=== PATIENT | male | born 1980 | race Caucasian/White ===

== ENCOUNTER 2018-05-10 19:24 | Emergency (ER) | payer SELFPAY ==
[2018-05-10 19:24] VITALS: BP 186/81; PULSE 99; RESP 20; TEMP 36.6; O2SAT 95; BMI 38.2
--- NOTE | 2018-05-10 19:40 | RAD_ITS ---
STUDY: X-RAY - PELVIS AND LEFT HIP REASON FOR EXAM: Male, 37 years old. Problems with hip for 2 years. Crackling nor is the left hip when bending over. TECHNIQUE: Radiological exam, hip, unilateral, with pelvis when performed; 2 or 3 views. COMPARISON: None. FINDINGS: There is a non-specific bowel gas pattern. Normal visualized soft tissue structures. Normal bilateral iliac wings, sacroiliac joints and visualized sacrum. Normal bilateral superior and inferior pubic rami. Normal pubic symphysis. Normal bilateral ischial tuberosities. Normal visualized left femoral head. Normal left acetabulum. Normal hip joint. RAD/Hip 2-3 Views with Pelvis IMPRESSION: Normal x-ray examination of the pelvis and hip. Electronically Signed: Saurabh Sullivan DO at 20:21 EDT Tel [phone], Service support ,
--- NOTE | 2018-05-10 19:43 | ED.DCSUM_ITS ---
- ER Visit Summary Date of Service: 05/10/18 Chief Complaint: Left hip pain History of Present Illness: The patient is a 37 M sudden increasing left hip pain after bending over. States he heard a crack. Has been dealing with this hip pain for 2 years. He is from [place]. He is here visiting his parents for 2 weeks. Patient states he sees an orthopedist along with a neurosurgeon with both spinal and hip injections. Last injection with September of last year. Currently on amitriptyline, gabapentin, oxycodone's. He states he takes 10 mg oxycodone every 8 hours. He ran out of his Motrin. No history of gastric ulcers or acute kidney injury. He drove himself here. Pain is worse with movement. No fevers. No rash. He has had similar flares in the past. Physical Examination: General: Alert and oriented ?3, moderate e distress HEENT: Normocephalic, atraumatic. Moist mucosa membranes Neck: supple, nontender. Cardiovascular: Regular rate and rhythm, no murmurs Respiratory: Normal breath sounds, symmetric, no distress Abdomen: Soft, nontender, nondistended Extremities: Left lower extremity: Hip region with no erythema or rash. There is pain in the groin. No shortening or rotation. No edema, pulses intact ?4 Neuro: no focal neurological deficits. Test Results: Left hip x-ray: No fracture dislocation Emergency Department Course and Treatment: Patient acute flare of his chronic hip pain symptoms. He states he felt a crack when bending over. He was treated with IM Toradol along with subcu morphine. X-rays obtained which negative for any fracture dislocation. Reevaluation symptoms much more improved. He has oxycodone at home to use, I will refill his ibuprofen. He will continue his home medications. There is no rash or fevers for concerns of septic hip joint. He will follow-up with his specialist for outpatient reevaluation. Treatment Plan: [] Disposition: Discharge Impression: Acute on chronic left hip pain This note was generated with [employer] dictation software. It may contain incorrect words, spelling, and punctuation that were not noted in review of the chart prior to signing ED Disposition - Plan for ED Patient: Disposition: Home or Assisted Living Chief Complaint: Lower Extremity Injury Diagnosis: Acute on chronic left hip pain Prescriptions: Ibuprofen 600 mg PO 4X/DAY #30 tablet Referrals: NOT,DEFINED [NON-STAFF] - Additional Instructions: Acute flare of your ongoing hip pain. Continue your home doses of medications. Continue ibuprofen as written. Follow-up with your specialists for reevaluation.
[2018-05-10] MEDS: Ketorolac 60 MG/2 ML Vial IM (19:49)
[2018-05-10] MEDS: morphine 10 MG/ML Syringe SC (19:50)
[2018-05-10 20:58] VITALS: RESP 18
--- NOTE | 2018-05-10 21:10 | NURSING ---
WHEELED THE PT TO HIS FRIENDS CAR, NO OTHER QUESTIONS, KNOWS TO FOLLOW UP WITH HIS SPECIALIST
== END 2018-05-10 21:10 | disposition home or self-care (01) ==
PROVIDERS: Emergency Provider Emergency Medicine; Family Provider Family Medicine
DX: M25.552 Pain in left hip (principal); G89.29 Other chronic pain; I10 Essential (primary) hypertension; Z79.899 Other long term (current) drug therapy
CPT/HCPCS: 73502; 96372; 99282

== ENCOUNTER 2020-01-17 17:30 | Outpatient (RCR) | payer OTHER, SELFPAY ==
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
--- NOTE | 2020-06-09 16:53 | HP.PT.NRP ---
ANIKET FLORES was seen in my office for initial evaluation on 12/24/19. The following Plan of Care was established for this patient: Initial Frequency: 2-3x /Week Initial Duration: 4-6 Weeks Patient/Client Instruction: Educate patient on: Condition, Plan of Care For the Purpose of:: To improve self management Therapeutic Exercise to Include: Strength training, Body mechanics, Postural training, Flexibilty training, Gait and locomotor training, Dynamic Lumbar Stabilization For the Purpose of:: To decrease pain, To increase ROM, To improve muscle performance and motor function IF ES: Yes For the Purpose of:: To decrease pain This patient was last seen in our office . Pertinent comments regarding their Physical therapy will appear below: Pt was treated for 4 PT visits for LBP through the date of 01/17/2020. Pt has not returned through todays date and is discontinued at this time. At this point I will be discontinuing this patient from physical therapy. I would be happy to see this patient again in the future if found appropriate by the physician. Thank you! Kaleb Joe, PT, ATC
== END 2020-01-17 19:00 | disposition home or self-care (01) ==
LOC: PT 17:30
PROVIDERS: PCP Family Medicine; Referring Provider Family Medicine; Visit Provider Family Medicine
DX: M54.5 Low back pain (principal); G89.29 Other chronic pain
CPT/HCPCS: 97014; 97110; 97161; G0283

== ENCOUNTER → 2020-06-19 | Outpatient (CLI) | payer SELFPAY | END | disposition home or self-care (01) | LOC: LABSPEC 16:37 | PROVIDERS: PCP Family Medicine; Referring Provider Family Medicine; Visit Provider Family Medicine | DX: Z20.828 Contact with and (suspected) exposure to other viral communicable diseases (principal) | CPT/HCPCS: 87635; U0003 ==

== ENCOUNTER → 2021-06-09 08:55 | Outpatient (CLI) | payer SELFPAY ==
[2021-06-09 10:09] LABS: Erythrocyte Sedimentation Rate 34 mm/hr (0-20)
== END ==
PROVIDERS: PCP Family Medicine; Referring Provider Family Medicine; Visit Provider Family Medicine
DX: M25.50 Pain in unspecified joint (principal)
CPT/HCPCS: 36415; 85652; 86140

== ENCOUNTER → 2021-11-05 | Outpatient (CLI) | payer MEDICARE, SELFPAY | END | disposition home or self-care (01) | PROVIDERS: PCP Family Medicine; Visit Provider Nurse Practitioner Family | DX: U07.1 COVID-19 (principal) | CPT/HCPCS: 87635; U0003; U0005 ==

== ENCOUNTER → 2023-01-26 | Outpatient (CLI) | payer OTHER, SELFPAY ==
[2023-01-26 12:25] LABS: Absolute Lymphocyte Count 2.04 X10^3/uL (0.83-4.51); Absolute Neutrophil Count 8.2 X10^3/uL (2.0-7.7); Basophil# 0.04 X10^3/uL; Basophil% 0.4 % (0-1); Eosinophil# 0.12 X10^3/uL; Eosinophils% 1.1 % (0-5); Hematocrit 47.8 % (40-54); Hemoglobin 16.1 g/dL (13.0-16.5); Lymphocyte # 2.04 X10^3/ul (0.83-4.51); Lymphocyte % 18.1 % (19-41); Mean Corp Hgb Conc 33.7 g/dL (32-36); Mean Corpuscular Hgb 28.3 pg (27.0-32.0); Mean Platelet Vol. 10.2 fl (6.2-12.0); Monocyte# 0.82 X10^3/uL; Monocyte% 7.3 % (0-10); NRBC Flagged by Analyzer 0 % (0-5); Neutrophil # 8.21 X10^3/uL (2.7-7.7); Neutrophil % 72.6 % (47-70); Platelet Count 337 K/mm3 (150-450); RBC Distribution Width CV 14.4 % (11.6-14.6); Red Blood Count 5.69 M/mm3 (4.6-6.2); White Blood Count 11.3 K/mm3 (4.4-11.0)
[2023-01-26 12:44] LABS: Vitamin B12 447 pg/mL (211-911); Vitamin D,25 Hydroxy 14.6 ng/mL
[2023-01-26 12:50] LABS: Hemoglobin A1c 5.9 % (3.8-5.6)
[2023-01-26 13:02] LABS: ALB/GLOB Ratio 0.8 RATIO (0.9-2.4); AST(SGOT) 22 U/L (15-37); Alanine Aminotransfer ALT/SGPT 31 U/L (16-61); Albumin, Serum 3.6 g/dL (3.2-5.0); Alkaline Phosphatase 61 U/L (45-117); Anion Gap 8 (5-15); BUN 12 mg/dL (7-18); BUN/Creat Ratio 12.1 RATIO (10-20); Calcium,Total 9.7 mg/dL (8.5-10.1); Chloride 101 mmol/L (98-107); Cholesterol 177 mg/dL (200); Creatinine, Serum 0.99 mg/dL (0.70-1.30); EST Glomerular Filtration Rate 87 mL/min (>60); Est Glom Filt Rate - Afr Amer 106 mL/min (>60); Ferritin 206 ng/mL (26-388); Globulin 4.4 g/dL (2.2-4.2); Glucose 124 mg/dL (74-106); High Density Lipoprotein 33 mg/dL; Potassium 3.2 mmol/L (3.5-5.1); Sodium Level 137 mmol/L (136-145); Triglycerides 190 mg/dL; Very Low Density Lipoprotein 38 mg/dL (5-40)
[2023-01-26 16:05] LABS: Microalbumin,Random Urine 47.9 mg/L (NO RANGE EST.)
[2023-01-30 21:07] LABS: Testosterone, Free 5.49 ng/dL (5.00-21.00)
[2023-01-31 10:27] LABS: Testosterone, % Free 1.67 % (1.50-4.20); Testosterone, Total 329 ng/dL (264-916)
== END | disposition home or self-care (01) ==
PROVIDERS: PCP Family Medicine; Referring Provider Family Medicine; Visit Provider Family Medicine
DX: I10 Essential (primary) hypertension (principal); R53.83 Other fatigue
CPT/HCPCS: 36415; 80053; 80061; 82043; 82306; 82607; 82728; 83036; 84402; 84403; 85025

== ENCOUNTER → 2024-02-28 | Outpatient (CLI) | payer SELFPAY ==
[2024-02-28 17:33] LABS: Absolute Lymphocyte Count 2.85 X10^3/uL (0.83-4.51); Absolute Neutrophil Count 8.8 X10^3/uL (2.0-7.7); Basophil# 0.06 X10^3/uL; Basophil% 0.5 % (0-1); Eosinophil# 0.15 X10^3/uL; Eosinophils% 1.2 % (0-5); Hematocrit 44.3 % (40-54); Hemoglobin 15.1 g/dL (13.0-16.5); Lymphocyte # 2.85 X10^3/ul (0.83-4.51); Lymphocyte % 22.2 % (19-41); Mean Corp Hgb Conc 34.1 g/dL (32-36); Mean Corpuscular Hgb 28.3 pg (27.0-32.0); Mean Platelet Vol. 10.5 fl (6.2-12.0); Monocyte# 0.92 X10^3/uL; Monocyte% 7.2 % (0-10); NRBC Flagged by Analyzer 0 % (0-5); Neutrophil # 8.78 X10^3/uL (2.7-7.7); Neutrophil % 68.3 % (47-70); Platelet Count 304 K/mm3 (150-450); Red Blood Count 5.34 M/mm3 (4.6-6.2); White Blood Count 12.8 K/mm3 (4.4-11.0)
[2024-02-28 19:07] LABS: ALB/GLOB Ratio 0.8 RATIO (0.9-2.4); AST(SGOT) 20 U/L (15-37); Alanine Aminotransfer ALT/SGPT 29 U/L (16-61); Albumin, Serum 3.4 g/dL (3.2-5.0); Alkaline Phosphatase 58 U/L (45-117); Anion Gap 7 (5-15); BUN 17 mg/dL (7-18); BUN/Creat Ratio 15.2 RATIO (10-20); Calcium,Total 8.8 mg/dL (8.5-10.1); Chloride 101 mmol/L (98-107); Cholesterol 161 mg/dL (200); Creatinine, Serum 1.12 mg/dL (0.70-1.30); EST Glomerular Filtration Rate 75 mL/min (>60); Est Glom Filt Rate - Afr Amer 91 mL/min (>60); Globulin 4.2 g/dL (2.2-4.2); Glucose 145 mg/dL (74-106); High Density Lipoprotein 30 mg/dL; Potassium 2.9 mmol/L (3.5-5.1); Protein, Total 7.6 g/dL (6.4-8.2); Sodium Level 136 mmol/L (136-145); Triglycerides 209 mg/dL; Troponin-I HS 8 pg/mL (3.0-78.0); Very Low Density Lipoprotein 42 mg/dL (5-40)
== END | disposition home or self-care (01) ==
PROVIDERS: PCP Family Medicine; Referring Provider Family Medicine; Visit Provider Family Medicine
DX: I10 Essential (primary) hypertension (principal); K31.9 Disease of stomach and duodenum, unspecified; R07.81 Pleurodynia
CPT/HCPCS: 36415; 80053; 80061; 84484; 85025

== ENCOUNTER 2024-03-03 16:38 | Emergency (ER) | payer BC, SELFPAY ==
[2024-03-03 16:39] VITALS: BP 140/98; PULSE 78; RESP 16; TEMP 36.7; O2SAT 97; BMI 44.4
[2024-03-03 16:41] VITALS: BP 140/98; PULSE 79; RESP 16; TEMP 36.7; O2SAT 96
--- NOTE | 2024-03-03 16:49 | EKG12_ITS ---
Test Reason : CP Blood Pressure : / mmHG Vent. Rate : 076 BPM Atrial Rate : 076 BPM P-R Int : 172 ms QRS Dur : 114 ms QT Int : 404 ms P-R-T Axes : 062 -44 031 degrees QTc Int : 454 ms Normal sinus rhythm Left axis deviation Moderate voltage criteria for LVH, may be normal variant ( R in aVL , [place] product ) Abnormal ECG Confirmed by KEYON CHADWICK, VALERY ([id number]), electronic news gathering editor NILDA HANSON ([id number]) on 03/05/2024 9:43:13 AM Referred By: VARUN Confirmed By:VALERY TA MD
--- NOTE | 2024-03-03 16:50 | EDS_ITS ---
HPI History of Present Illness Chief Complaint: Chest Pain Informant: patient and spouse/S.O. Narrative Narrative: Intermittent left-sided chest pain rating to his shoulder blade for the past week. Is been more persistent since this morning at 9 AM. Achy to sharp in nature. No dyspnea nausea or diaphoresis. Saw his PCP this past Tuesday had blood work outpatient had an x-ray ordered for today. He was in x-ray department when he is having symptoms or for came to the emergency department. 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 Hypertension history father with PA at the age of 47. Denies tobacco diabetes or hyperlipidemia. Denies any recent travel, surgeries, or immobilizations. No history of PE or DVT. Pain is currently subsiding. Patient reports also productive cough. When he saw his PCP is on Zithromax. Has inhaler that he is using for wheezing. Prior Similar Symptoms: No CVD Risk Factors: Positive for Hypertension and Family History 1' </=55; Negative for Diabetes, Hypercholesterolemia or Smoking PE Risk Factors: Negative for Recent Travel/Surgery, Recent Immobilization, Prior DVT or PE or OCP + Smoking + >/=35 [facility] Medical History (Updated 03/03/24 @ 19:[address] Hank Blue DO) Pneumonia Home Medications amitriptyline 50 mg tablet 50 mg PO QHS 05/10/18 [History Last Taken Unknown] amlodipine 10 mg tablet 10 mg PO DAILY 05/10/18 [History Last Taken Unknown] chlorthalidone 25 mg tablet 25 mg PO DAILY 05/10/18 [History Last Taken Unknown] gabapentin 300 mg capsule 300 mg PO TIDCM 05/10/18 [History Last Taken Unknown] ibuprofen 600 mg tablet 600 mg PO 4X/DAY #30 tabs 05/10/18 [Rx Last Taken Unknown] losartan 50 mg tablet 50 mg PO DAILY 05/10/18 [History Last Taken Unknown] metoprolol succinate 100 mg tablet,extended release 24 hr (Toprol XL) 100 mg PO DAILY 05/10/18 [History Last Taken Unknown] oxycodone-acetaminophen 10 mg-325 mg tablet 1 ea PO TID 05/10/18 [History Last Taken Unknown] Allergy/AdvReac Type Severity Reaction Status Date / Time coconut Allergy Shortness Verified 03/03/24 16:42 of breath promethazine [From Phenergan] Allergy Shortness Verified 03/03/24 16:42 of breath Surgical History (Updated 03/03/24 @ 17:17 by Carole Nicolas) Hx of tonsillectomy Social History Smoking Status: Never smoker ROS ROS ED Constitutional Constitutional ED: Denies chills, fever(s) or sweats Eyes Eyes: Denies change in vision ENT ENT ED: Denies dysphagia or sore throat Cardiovascular Cardiovascular: Reports chest pain; Denies leg edema, palpitations or racing heartbeat Respiratory/Chest Respiratory/Chest: Denies cough, dyspnea or dyspnea on exertion Gastrointestinal Gastrointestinal: Denies abdominal pain, diarrhea, nausea or vomiting Genitourinary Genitourinary ED: Denies dysuria, hematuria or urinary frequency Musculoskeletal Musculoskeletal: Denies back pain, extremity pain or neck pain Integumentary Denies rash or wounds Neurologic Neurologic: Denies headache(s), paresthesias or weakness EXAM Physical Exam Const Vital Signs: 03/03/24 16:39 03/03/24 16:41 03/03/24 16:49 Temperature 98.1 F 98.1 F Temperature Source Temporal Temporal Pulse Rate 78 79 Respiratory Rate 16 16 Respiratory Effort Blood Pressure 140/98 H 140/98 H Blood Pressure Mean 112 112 Pulse Ox 97 96 Oxygen Delivery Method Room Air Room Air Room Air 03/03/24 17:12 03/03/24 18:06 03/03/24 18:08 Temperature 98.4 F Temperature Source Temporal Pulse Rate 74 74 Respiratory Rate 24 H 24 H Respiratory Effort Normal Blood Pressure 128/73 H 128/73 H Blood Pressure Mean 91 91 Pulse Ox 97 97 Oxygen Delivery Method Room Air Room Air 03/03/24 19:31 03/03/24 19:00 Temperature 98.0 F Temperature Source Pulse Rate 75 78 Respiratory Rate 15 16 Respiratory Effort Blood Pressure 127/79 H 143/90 H Blood Pressure Mean 95 107 Pulse Ox 95 100 Oxygen Delivery Method Room Air Positive well nourished and well developed General Appearance ED: well developed and NAD HEENT Reports moist mucous membranes normocephalic and atraumatic Eyes PERRL, EOMs intact bilaterally and conjunctivae normal General Eye ED: Yes normal appearance of both eyes Neck no lymphadenopathy and supple General: Negative for tenderness Chest Wall Chest: Negative for tenderness Resp normal respiratory effort and normal air movement Effort and Inspection: symmetric chest movement; Negative for respiratory distress Cardio regular rate, regular rhythm and no murmurs Peripheral Pulses: pulses 2+ throughout GI normal to inspection, nondistended, normoactive bowel sounds and non-tender Palpation: Negative for guarding or rebound tenderness present Back/Spine no CVA tenderness and no thoracic nor lumbar tenderness Extremity normal to inspection General Extremety ED: Negative for edema or tenderness General Extremity: Negative for edema Neuro oriented x3 and no sensory deficits noted Sensorium / Orientation: awake and alert Skin no rashes or lesions noted and no wounds Heart Score History: Slightly/Non-Suspicious ECG: Normal Age: </= 45 years Risk Factors: 1 or 2 Risk Factors Troponin: </= Normal Limit Score: 1 MDM MDM MDM Narrative Medical decision making narrative: Interventions / MDM: Differential diagnosis: Atypical chest pain, viral URI Diagnosis considered but do not suspect: Pneumonia however x-ray negative. ACS however EKG and troponins negative. Pulmonary embolism however PE RC criteria negative. My EKG interpretation: Sinus rate of 76, no ST changes, isolated T wave version lead III nonspecific. Imaging independently reviewed and interpreted by myself: N/A External documents reviewed: 2 view chest x-ray reviewed interpreted myself from outpatient elevated right hemidiaphragm no pneumothorax. Test considered but not ordered:N/A ED course: Patient chest pain EKG with no acute findings. Cardiac workup initiated. Chest x-ray reviewed from outpatient had elevated right hemidiaphragm. 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 He is given aspirin. 1930: Repeat troponin also negative. Fortunately mild burning sensation. He states his symptoms seem improved with inhaler use at home. There is no pneumonia on chest x-ray. Discussed viral syndrome and pleurisy. Discussed with his family history of MIs at young age of 45 he will need to follow with PCP for further testing as outpatient. I discussed strict return precautions. All questions were answered. Patient Re-evaluation: stable Disposition discussed with patient/family/significant other: Patient and si gnificant other Case discussed with consulting clinician: N/A This note was generated with [employer] dictation software. It may contain incorrect words, spelling, and punctuation that were not noted in checking the note before signing. Lab Data Attestation: I reviewed the patient's lab results. Labs: Laboratory Results - last 24 hr 03/03/24 03/03/24 16:55 18:50 WBC 14.3 H RBC 5.30 Hgb 15.4 Hct 44.3 MCV 83.6 MCH 29.1 MCHC 34.8 RDW Std Deviation 43.2 RDW Coeff of Maggi 14.3 Plt Count 275 MPV 10.0 Immature Gran % (Auto) 0.700 Neut % (Auto) 77.6 H Lymph % (Auto) 13.5 L [place] % (Auto) 7.4 Eos % (Auto) 0.4 Baso % (Auto) 0.4 Absolute Neuts (auto) 11.1 H Absolute Lymphs (auto) 1.94 Nucleated RBC % 0 Sodium 137 Potassium 3.0 L Chloride 98 Carbon Dioxide 32.0 Anion Gap 7 BUN 23 H Creatinine 1.07 Estim Creat Clear Calc 119.65 Est GFR (MDRD) Af Amer 96 Est GFR (MDRD) Non-Af 79 BUN/Creatinine Ratio 21.5 H Glucose 131 H Calcium 9.0 Troponin I High Sens 6 7 Discharge Plan Triage Chief Complaint: Chest Pain ED Provider: Hank Blue Dx/Rx/DC Orders Clinical Impression: Viral URI with cough, Chest pain Instructions: ED Chest Pain, Uncertain Cause, ED URI, Viral, No Abx (Adult) Prescriptions: No Action losartan 50 MG tablet 50 mg PO DAILY metoprolol succinate [Toprol XL] 100 MG tablet extended release 24 hr 100 mg PO DAILY chlorthalidone 25 MG tablet 25 mg PO DAILY amitriptyline 50 MG tablet 50 mg PO QHS oxycodone-acetaminophen 1 EACH tablet 1 ea PO TID amlodipine 10 MG tablet 10 mg PO DAILY gabapentin 300 MG capsule 300 mg PO TIDCM ibuprofen 600 MG tablet 600 mg PO 4X/DAY Qty: 30 0RF Primary Care Provider: Louis Iqbal Referrals: Louis Iqbal MD [Primary Care Provider] - 3-5 Days Activity Restrictions/Additional Instructions: Your chest x-ray reviewed right elevated hemidiaphragm, no infiltrates noted. Your cardiac workup negative today. Continue your albuterol for wheezing as needed. May use Tylenol as needed for pain. Follow-up your doctor will likely needed stress test as an outpatient. If symptoms worsens or different, return to the ED for reevaluation. Disposition Disposition: Home, Self Care Discharge Date/Time: 03/03/24 19:33
[2024-03-03] MEDS: Aspirin 81 MG TAB.CHEW 324 MG PO (16:54)
[2024-03-03 17:02] LABS: Absolute Lymphocyte Count 1.94 X10^3/uL (0.83-4.51); Absolute Neutrophil Count 11.1 X10^3/uL (2.0-7.7); Basophil# 0.06 X10^3/uL; Basophil% 0.4 % (0-1); Eosinophil# 0.06 X10^3/uL; Eosinophils% 0.4 % (0-5); Hematocrit 44.3 % (40-54); Hemoglobin 15.4 g/dL (13.0-16.5); Lymphocyte # 1.94 X10^3/ul (0.83-4.51); Lymphocyte % 13.5 % (19-41); Mean Corp Hgb Conc 34.8 g/dL (32-36); Mean Corpuscular Hgb 29.1 pg (27.0-32.0); Mean Corpuscular Volume 83.6 fL (80-94); Monocyte# 1.06 X10^3/uL; Monocyte% 7.4 % (0-10); NRBC Flagged by Analyzer 0 % (0-5); Neutrophil # 11.12 X10^3/uL (2.7-7.7); Neutrophil % 77.6 % (47-70); Platelet Count 275 K/mm3 (150-450); RBC Distribution Width CV 14.3 % (11.6-14.6); RBC Distribution Width SD 43.2 fl (35.1-43.9); White Blood Count 14.3 K/mm3 (4.4-11.0)
[2024-03-03 17:23] LABS: Anion Gap 7 (5-15); BUN 23 mg/dL (7-18); BUN/Creat Ratio 21.5 RATIO (10-20); Chloride 98 mmol/L (98-107); Creatinine, Serum 1.07 mg/dL (0.70-1.30); EST Glomerular Filtration Rate 79 mL/min (>60); Est Glom Filt Rate - Afr Amer 96 mL/min (>60); Estimated Creatinine Clearance 119.65 ml/min; Glucose 131 mg/dL (74-106); Sodium Level 137 mmol/L (136-145); Troponin-I HS (w/2H Reflex) 6 pg/mL (3.0-78.0)
[2024-03-03] MEDS: Potassium Chloride Oral Tablet 20 MEQ 40 MEQ PO (17:56)
[2024-03-03 18:06] VITALS: BP 128/73; PULSE 74; RESP 24; O2SAT 97
[2024-03-03 18:08] VITALS: BP 128/73; PULSE 74; RESP 24; TEMP 36.9; O2SAT 97
[2024-03-03 18:55] LABS: Reflex Troponin-HS? (from REC) Y
[2024-03-03 19:00] VITALS: BP 143/90; PULSE 78; RESP 16; O2SAT 100
[2024-03-03 19:13] LABS: Troponin-I HS 7 pg/mL (3.0-78.0)
[2024-03-03 19:31] VITALS: BP 127/79; PULSE 75; RESP 15; TEMP 36.7; O2SAT 95
== END 2024-03-03 19:33 | disposition home or self-care (01) ==
PROVIDERS: Emergency Provider Emergency Medicine; PCP Family Medicine; Visit Provider Emergency Medicine
DX: J06.9 Acute upper respiratory infection, unspecified (principal); R07.9 Chest pain, unspecified
CPT/HCPCS: 80048; 84484; 85025; 93005; 99285

== ENCOUNTER → 2024-03-03 | Outpatient (CLI) | payer BC, SELFPAY ==
--- NOTE | 2024-03-03 16:15 | RAD_ITS ---
STUDY: X-RAY CHEST REASON FOR EXAM: Male, 43 years old. CHEST PAIN TECHNIQUE: PA and lateral views of the chest. COMPARISON: None. FINDINGS: The lungs are clear and expanded. Elevated right hemidiaphragm. Normal size heart. Normal mediastinum and yann. Normal visualized pulmonary arteries. Normal visualized aortic arch and descending thoracic aorta. Normal visualized thoracic spine. Normal visualized ribs, clavicles, and shoulders. There is no demonstrated abnormality of the visualized soft tissue structures of the upper abdomen. RAD/Chest PA and Lateral IMPRESSION: No active disease. Elevated right hemidiaphragm. Electronically Signed: Rigo Marshall MD at 17:26 EDT ,
== END | disposition home or self-care (01) ==
LOC: RAD 16:13
PROVIDERS: PCP Family Medicine; Visit Provider Family Medicine
DX: R07.9 Chest pain, unspecified (principal); K31.9 Disease of stomach and duodenum, unspecified
CPT/HCPCS: 71046

== ENCOUNTER → 2024-03-09 | Outpatient (CLI) | payer BC, SELFPAY ==
[2024-03-09 18:07] LABS: Rheumatoid Factor < 10.0 IU/mL (<15); T4 Free Direct 1.44 ng/dL (0.76-1.46); Thyroid Stim Hormone (TSH) 1.13 uIU/mL (0.358-3.74)
[2024-03-12 10:07] LABS: ANTINUCLEAR ANTIBODIES DIRECT Negative (Negative)
== END | disposition home or self-care (01) ==
LOC: MTLAB 16:05
PROVIDERS: PCP Family Medicine; Referring Provider Family Medicine; Visit Provider Family Medicine
DX: M25.50 Pain in unspecified joint (principal); R53.83 Other fatigue
CPT/HCPCS: 36415; 84439; 84443; 86038; 86431